=== PATIENT | male | born 1975 | race Caucasian/White ===

== ENCOUNTER → 2017-03-20 | Outpatient (CLI) | payer OTHER ==
[~2017-03-20] MED LIST: AMBIEN 10MG10 MG PO; CIPRO 500MG TA500 MG PO; CYMBALTA 60MG60 MG PO; FISH OIL CONC1000 MG PO; FLAGYL500 MG PO; FLEXERIL10 MG PO; LUNESTA; MVI; NO HOME MEDICATIONS; PERCOCET 325 MG1 TA2 PO; PERCOCET 325 MG1 TAB PO; PERCOCET 5/321 UDTAB PO; PRILOSEC10 MG PO; VERAPAMIL
== END ==
LOC: COL.VAS 12:30
DX: I65.21 Occlusion and stenosis of right carotid artery (principal); Z82.3 Family history of stroke

== ENCOUNTER → 2021-07-27 | Outpatient (CLI) | payer BC ==
[2021-07-27 17:18] LABS: AMYLASE 132 U/L (25-125); LIPASE 72 U/L (8-78)
== END ==
LOC: ZCOL.LAB 16:46
PROVIDERS: Family Medicine
DX: R10.13 Epigastric pain (principal)

== ENCOUNTER → 2021-07-29 | Outpatient (CLI) | payer BC | LOC: COL.RAD 13:24 | DX: R10.9 Unspecified abdominal pain (principal); R74.8 Abnormal levels of other serum enzymes | CPT/HCPCS: Q9967 ==